=== PATIENT | female | born 1985 | race Caucasian/White ===

== ENCOUNTER 2017-12-14 13:11 | Emergency (ER) | payer MEDICAID ==
--- NOTE | 2017-12-14 15:45 | Emergency Department Record ---
History of Present Illness - General Chief Complaint: Ankle/Foot Injury Stated Complaint: RT ANKLE PAIN Time Seen by Provider: 12/14/17 15:28 Source: Patient Mode of Arrival: Ambulatory Limitations: No limitations - History of Present Illness Initial Comments: pt fell down 5 steps 2 days ago hurting r ankle. she heard a pop. Complaint: Ankle injury Onset/Timin -: Days(s) Injury: Ankle: Right, Foot: Right Type of Injury: Blunt Place: Home Context: Fall, Walking - Related Data Home Medications Medication Instructions Recorded Confirmed Last Taken Aripiprazole [Abilify] 10 mg PO DAILY 12/14/17 12/14/17 12/13/17 Citalopram Hydrobromide [Celexa] 40 mg PO DAILY 12/14/17 12/14/17 12/13/17 Lisinopril 1 tab PO DAILY 12/14/17 12/14/17 12/13/17 Pantoprazole Sodium [Protonix] 40 mg PO DAILY 12/14/17 12/14/17 12/13/17 Zolpidem Tartrate [Ambien] 10 mg PO QHS 12/14/17 12/14/17 12/13/17 Allergies Allergy/AdvReac Type Severity Reaction Status Date / Time codeine Allergy SWELLING Verified 12/14/17 15:16 OF THE TONGUE morphine Allergy SWELLING Verified 12/14/17 15:16 OF THE TONGUE Travel Screening - Travel/Exposure Within Last 30 Days Have you traveled within the last 30 days?: No - Travel/Exposure Within Last Year Have you traveled outside the [place] in the last year?: No - Additonal Travel Details Have you been exposed to anyone with a communicable illness?: No - Travel Symptoms Symptom Screening: None Review of Systems Reviewed: No additional complaints except as noted below Constitutional: Reports: As per HPI. Denies: Chills, Fever, Malaise, Night sweats, Weakness, Weight change Eyes: Reports: As per HPI. Denies: Eye discharge, Eye pain, Photophobia, Vision change ENT: Reports: As per HPI. Denies: Congestion, Dental pain, Ear pain, Epistaxis , Hearing loss, Throat pain Respiratory: Reports: As per HPI. Denies: Cough, Dyspnea, Hemoptysis, Stridor, Wheezes Cardiovascular: Reports: As per HPI. Denies: Arrhythmia, Chest pain, Dyspnea on exertion, Edema, Murmurs, Orthopnea, Palpitations, Paroxysmal nocturnal dyspnea, Rheumatic Fever, Syncope Endocrine: Reports: As per HPI. Denies: Fatigue, Heat or cold intolerance, Polydipsia, Polyuria Gastrointestinal: Reports: As per HPI. Denies: Abdominal pain, Constipation, Diarrhea, Hematemesis, Hematochezia, Melena, Nausea, Vomiting Genitourinary: Reports: As per HPI. Denies: Abnormal menses, Discharge, Dyspareunia, Dysuria, Frequency, Hematuria, Incontinence, Retention, Urgency Musculoskeletal: Reports: As per HPI. Denies: Arthralgia, Back pain, Gout, Joint swelling, Myalgia, Neck pain Skin: Reports: As per HPI. Denies: Bruising, Change in color, Change in hair/ nails, Lesions, Pruritus, Rash Neurological: Reports: As per HPI. Denies: Abnormal gait, Confusion, Headache, Numbness, Paresthesias, Seizure, Tingling, Tremors, Vertigo, Weakness Psychiatric: Reports: As per HPI. Denies: Anxiety, Auditory hallucinations, Depression, Homicidal thoughts, Suicidal thoughts, Visual hallucinations Hematological/Lymphatic: Reports: As per HPI. Denies: Anemia, Blood Clots, Easy bleeding, Easy bruising, Swollen glands Past Medical History - SOCIAL HISTORY Smoking Status: Never smoker Alcohol Use: None Drug Use: None - RESPIRATORY Hx Respiratory Disorders: Yes Hx Asthma: Yes Hx Pneumonia: Yes - CARDIOVASCULAR Hx Cardio Disorders: Yes Hx Hypertension: Yes - NEURO Hx Neuro Disorders: Yes Hx Headaches: Yes - GI Hx GI Disorders: No - Hx Genitourinary Disorders: No - ENDOCRINE Hx Endocrine Disorders: No - MUSCULOSKELETAL Hx Musculoskeletal Disorders: No - PSYCH Hx Psych Problems: No - HEMATOLOGY/ONCOLOGY Hx Hematology/Oncology Disorders: No Family Medical History Any Significant Family History?: No Hx Cancer: Mother, Grandparents Hx Diabetes: Father Hx HTN: Brother/Sister Physical Exam - General General Appearance: Alert, Oriented x3, Cooperative, Mild distress - Head Head exam: Normal inspection - Eye Eye exam: Normal appearance, PERRL, EOMI Pupils: Normal accommodation - ENT ENT exam: Normal exam, Mucous membranes moist, Normal external ear exam, Normal orophraynx Ear exam: Normal external inspection. negative: External canal tenderness Nasal Exam: Normal inspection. negative: Discharge, Sinus tenderness Mouth exam: Normal external inspection, Tongue normal Teeth exam: Normal inspection. negative: Dental caries Throat exam: Normal inspection. negative: Tonsillar erythema, Tonsillar exudate - Neck Neck exam: Normal inspection, Full ROM. negative: Tenderness - Respiratory Respiratory exam: Normal lung sounds bilaterally. negative: Respiratory distress - Cardiovascular Cardiovascular Exam: Regular rate, Normal rhythm, Normal heart sounds - GI/Abdominal GI/Abdominal exam: Soft, Normal bowel sounds. negative: Tenderness - Rectal Rectal exam: Deferred - exam: Deferred - Extremities Extremities exam: Normal inspection, Full ROM, Normal capillary refill. negative: Tenderness - Back Back exam: Reports: Normal inspection, Full ROM. Denies: Muscle spasm, Rash noted, Tenderness - Neurological Neurological exam: Alert, CN II-XII intact, Normal gait, Oriented X3 - Psychiatric Psychiatric exam: Normal affect, Normal mood - Skin Skin exam: Dry, Intact, Normal color, Warm Course Vital Signs 12/14/17 15:07 Temperature 99.2 F Pulse Rate 102 H Respiratory 18 Rate Blood Pressure 128/61 Pulse Ox 98 Disposition Disposition: Discharge Clinical Impression: Ankle sprain Qualifiers: Encounter type: initial encounter Involved ligament of ankle: unspecified ligament Laterality: right Qualified Code(s): S93.401A - Sprain of unspecified ligament of right ankle, initial encounter Disposition: Home, Self-Care Condition: (1) Good Instructions: Ankle Sprain (ED) Additional Instructions: ice and elevate ankle. follow up with family doctor. return sooner if worse. motrin with food Quality - Quality Measures Quality Measures: N/A - Blood Pressure Screening Does Patient Have Any of the Following: No Blood Pressure Classification: Pre-Hypertensive BP Reading Systolic Measurement: 128 Diastolic Measurement: 61 Screening for High Blood Pressure: < Pre-Hypertensive BP, F/U Documented > [ [id number]] Pre-Hypertensive Follow-up Interventions: Follow-up with rescreen every year.
[2017-12-14] MEDS ORDERED: IBUPROFEN 600 MG TABLET PO ONE (17:00)
--- NOTE | 2017-12-15 13:57 | RADIOLOGY REPORT ---
EXAM: RIGHT ANKLE HISTORY: FELL DOWN STAIRS THREE DAYS AGO. RIGHT ANKLE PAIN AND SWELLING SINCE. BRUISING. TECHNIQUE: Three views of the right ankle were obtained. Comparison: Right foot series from the same date. Encounter: Initial. FINDINGS: There is prominent lateral soft tissue swelling. The bones appear intact. There is no visible acute fracture or dislocation. The ankle mortise is intact. IMPRESSION: 1. LATERAL SOFT TISSUE SWELLING. 2. NO FRACTURE IDENTIFIED. JOB NUMBER: [id number] MTDD
--- NOTE | 2017-12-15 14:02 | RADIOLOGY REPORT ---
EXAM: RIGHT FOOT HISTORY: FELL DOWN FIVE STAIRS. PAIN, SWELLING, AND BRUISING OF THE RIGHT ANKLE AND FOOT. TECHNIQUE: Three views of the right foot were obtained. Comparison: Right ankle series from the same date. Encounter: Initial. FINDINGS: The bones appear intact. There is no visible acute fracture or dislocation. Lateral soft tissue swelling is present at the ankle. IMPRESSION: NO ACUTE FOOT FRACTURE IDENTIFIED. JOB NUMBER: [id number] MTDD
== END 2017-12-14 17:28 | disposition home or self-care (01) ==
LOC: ER 13:11
DX: S93.401A Sprain of unspecified ligament of right ankle, initial encounter (principal); M79.671 Pain in right foot; I10 Essential (primary) hypertension; W10.9XXA Fall (on) (from) unspecified stairs and steps, initial encounter; Y92.009 Unspecified place in unspecified non-institutional (private) residence as the place of occurrence of the external cause
CPT/HCPCS: 99283